=== PATIENT | female | born 1980 | race Caucasian/White ===

== ENCOUNTER 2018-04-17 13:33 | Emergency (ER) | payer BC ==
[~2018-04-17] VITALS: Ht 165.1 cm; Wt 57.0 kg
[2018-04-17 13:39] VITALS: BP 98/55
[2018-04-17] MEDS ORDERED: diphenhydrAMINE 50 mg/ml inj IV ONE (14:00)
[2018-04-17] MEDS ORDERED: proCHLORperazine 10 MG/2 ml inj IV ONE (14:00)
[2018-04-17] MEDS ORDERED: LORazepam 2 mg/ml vial IV ONE (14:00)
== END 2018-04-17 16:05 | disposition home or self-care (01) ==
LOC: ER 13:33
DX: G43.909 Migraine, unspecified, not intractable, without status migrainosus (principal); Z88.0 Allergy status to penicillin; Z88.2 Allergy status to sulfonamides
CPT/HCPCS: 70450; 71045; 96374; 96375; 99284; J0780; J1200; J2060; 93005

== ENCOUNTER 2021-03-15 03:47 | Emergency (ER) | payer BC ==
[~2021-03-15] VITALS: Ht 165.1 cm; Wt 64.3 kg
[2021-03-15 06:55] VITALS: BP 122/68
== END 2021-03-15 06:58 | disposition home or self-care (01) ==
LOC: ER 03:47
DX: R07.89 Other chest pain (principal); R06.02 Shortness of breath; G43.909 Migraine, unspecified, not intractable, without status migrainosus; Z88.0 Allergy status to penicillin; Z88.2 Allergy status to sulfonamides; Z88.1 Allergy status to other antibiotic agents
CPT/HCPCS: 36415; 84484; 93005; 99284